=== PATIENT | male | born 1975 | race Caucasian/White ===

== ENCOUNTER 2019-02-14 16:29 | Emergency (ER) | payer SELFPAY ==
[~2019-02-14] VITALS: Ht 182.8 cm; Wt 81.6 kg
[~2019-02-14 16:29] MED LIST: ASPI-COR81 M1 PO; B-12500 MCG PO; CYCLOBENZAPRINE5 M3 PO; KEFLEX500 MG PO; NORCO 5-325 TA1 EACH PO; PREDNISONE20 M1 PO; PRILOSEC20 MG PO; ROBAXIN750 MG PO; TOBRADEX 0.1%-0.5 ML OPH; TRAMADOL HCL50 MG PO; Theragran M,Cen1 TAB PO; ZITHROMAX250 MG PO
[2019-02-14] MEDS ORDERED: METHOCARBAMOL500 M1 PO (18:37)
[2019-02-14] MEDS ORDERED: NAPROSYN500 MG PO (18:37)
[2019-02-14] MEDS ORDERED: MEDROL DOSEPAK4 MG PO (18:37)
== END 2019-02-14 18:50 | disposition home or self-care (01) ==
LOC: ED 16:29
DX: S39.012A Strain of muscle, fascia and tendon of lower back, initial encounter (principal); Z88.0 Allergy status to penicillin; Z88.6 Allergy status to analgesic agent; Z79.899 Other long term (current) drug therapy; Z79.82 Long term (current) use of aspirin; X50.0XXA Overexertion from strenuous movement or load, initial encounter; Y93.89 Activity, other specified; Y92.89 Other specified places as the place of occurrence of the external cause; Y99.8 Other external cause status

== ENCOUNTER 2019-10-20 18:42 | Emergency (ER) | payer OTHER ==
[~2019-10-20] VITALS: Ht 182.8 cm; Wt 74.8 kg
[~2019-10-20 18:42] MED LIST changes: +MEDROL DOSEPAK4 MG PO; +METHOCARBAMOL500 M1 PO; +NAPROSYN500 MG PO
[2019-10-20] MEDS ORDERED: NORCO 5-325 TA1 EACH PO (22:21)
== END 2019-10-20 22:34 | disposition home or self-care (01) ==
LOC: ED 18:42
DX: S52.121A Displaced fracture of head of right radius, initial encounter for closed fracture (principal); F17.200 Nicotine dependence, unspecified, uncomplicated; Z88.0 Allergy status to penicillin; Z88.5 Allergy status to narcotic agent; Z79.899 Other long term (current) drug therapy; Z79.82 Long term (current) use of aspirin; W19.XXXA Unspecified fall, initial encounter; Y93.89 Activity, other specified; Y92.89 Other specified places as the place of occurrence of the external cause; Y99.8 Other external cause status